=== PATIENT | female | born 1960 | race Caucasian/White ===

== ENCOUNTER → 2016-08-06 | Outpatient (CLI) | payer OTHER ==
[2016-08-06 10:25] LABS: ALT 37 U/L (9-52); AST 26 U/L (14-36); Cholesterol 177 mg/dL (<200); Creatine Kinase 67 U/L (30-135); HDL Cholesterol 70 mg/dL (40-60); Triglycerides 101 mg/dL (<150)
== END | disposition home or self-care (01) ==
LOC: LABWHC1 09:43
PROVIDERS: ATTEND Internal Medicine Interventional Cardiology
DX: E78.2 Mixed hyperlipidemia (principal)
CPT/HCPCS: 36415; 80061; 82550; 84450; 84460

== ENCOUNTER → 2016-11-11 | Outpatient (CLI) | payer OTHER ==
--- NOTE | 2016-11-14 09:52 | MM ---
Reason for exam: screening (asymptomatic). Last mammogram was performed 1 year and 1 month ago. Physical Findings: A clinical breast exam by your physician is recommended on an annual basis and results should be correlated with mammographic findings. MG Screening Mammo w CAD Bilateral CC and MLO view(s) were taken. Prior study comparison: October 12, 2015, bilateral MG screening mammo w CAD. September 22, 2014, bilateral MG screening mammo w CAD. There are scattered fibroglandular densities. There is no discrete abnormality. No significant changes when compared with prior studies. ASSESSMENT: Negative, BI-RAD 1 RECOMMENDATION: Routine screening mammogram of both breasts in 1 year.
== END | disposition home or self-care (01) ==
LOC: RADMAMWWP 07:59
PROVIDERS: ATTEND Obstetrics & Gynecology
DX: Z12.31 Encounter for screening mammogram for malignant neoplasm of breast (principal)

== ENCOUNTER → 2017-03-25 | Outpatient (CLI) | payer OTHER ==
[2017-03-25 11:57] LABS: ALT 34 U/L (9-52); AST 28 U/L (14-36); Cholesterol 172 mg/dL (<200); Creatine Kinase 79 U/L (30-135); HDL Cholesterol 65 mg/dL (40-60)
== END | disposition home or self-care (01) ==
LOC: LABWHC1 10:47
PROVIDERS: ATTEND Internal Medicine Interventional Cardiology
DX: E78.5 Hyperlipidemia, unspecified (principal)
CPT/HCPCS: 36415; 80061; 82550; 84450; 84460

== ENCOUNTER → 2017-05-23 | Outpatient (CLI) | payer OTHER ==
--- NOTE | 2017-05-23 13:11 | US ---
EXAMINATION TYPE: US carotid duplex BILAT DATE OF EXAM: 05/23/2017 COMPARISON: NONE CLINICAL HISTORY: Syncope and collaspe R55. Patient states passing out in March, no HTN EXAM MEASUREMENTS: RIGHT: Peak Systolic Velocity (PSV) cm/sec ----- Right CCA: 68.6 ----- Right ICA: 103.0 ----- Right ECA: 157.6 ICA/CCA ratio: 1.5 RIGHT: End Diastole cm/sec ----- Right CCA: 23.2 ----- Right ICA: 34.4 ----- Right ECA: 18.7 LEFT: Peak Systolic Velocity (PSV) cm/sec ----- Left CCA: 79.8 ----- Left ICA: 104.3 ----- Left ECA: 104.3 ICA/CCA ratio: 1.3 LEFT: End Diastole cm/sec ----- Left CCA: 25.9 ----- Left ICA: 34.4 ----- Left ECA: 15.0 VERTEBRALS (direction of flow): Right Vertebral: Antegrade Left Vertebral: Antegrade Rhythm: Normal IMPRESSION: 1. No significant hemodynamic stenosis identified. Criteria for Assigning % of Stenosis / Diameter reduction (Estimation based on the indirect measurements of the internal carotid artery velocities (ICA PSV). 1. Normal (no stenosis)=ICA PSV < 125 cm/s: ratio < 2.0: ICA EDV<40 cm/s. 2. Less than 50% stenosis=ICA PSV < 125 cm/s: ratio < 2.0: ICA EDV<40 cm/s. 3. 50 to 69% stenosis=ICA PSV of 125 to 230 cm/s: ration 2.0 ? 4.0: ICA EDV 40-100 cm/s. 4. Greater than 70% stenosis to near occlusion= ICA PSV > 230 cm/s: ratio > 4.0: ICA EDV > 100 cm/s. 5. Near occlusion= ICA PSV velocities may be low or undetectable: variable ratio and ICA EDV. 6. Total occlusion=unable to detect flow.
--- NOTE | 2017-05-23 19:10 | EEG ---
ELECTROENCEPHALOGRAM REPORT DATE OF SERVICE: 05/23/2017. REASON FOR TESTING: Syncope. DESCRIPTION OF THE PROCEDURE: This EEG was performed using a 21 channel digital electroencephalograph, following international 10-20 system. DESCRIPTION OF THE RECORDING: From the beginning of the tracing, and with patient's eyes closed, the background rhythm was mostly consisting of 9-10 hertz alpha frequency in the posterior occipital leads. No obvious asymmetry is seen. Hyperventilation was performed with a mild buildup of amplitude seen. No pathological waves were elicited. Photic stimulation was performed with a good driving response seen. Again, no pathological waves were elicited. Rare movement artifacts are seen. The patient remains awake throughout the tracing. No epileptiform discharges were seen. Her EKG lead showed a regular rate and rhythm. INTERPRETATION: This awake EEG can be considered within normal limits. There was no asymmetry seen. No epileptiform discharges were noticed. The absence of epileptiform discharges does not rule out the diagnosis of epilepsy, therefore clinical correlation is recommended. DINESH / ANANT: [id number] /
== END | disposition home or self-care (01) ==
LOC: RADUSMAIN 12:17
PROVIDERS: ATTEND Family Medicine
DX: R55 Syncope and collapse (principal)
CPT/HCPCS: 93880; 95819

== ENCOUNTER → 2017-09-05 | Outpatient (CLI) | payer OTHER ==
[2017-09-05 10:02] LABS: Albumin 4.2 g/dL (3.5-5.0); Calcium 9.4 mg/dL (8.4-10.2); Potassium 4.4 mmol/L (3.5-5.1); Total Bilirubin 0.4 mg/dL (0.2-1.3); Total Protein 6.8 g/dL (6.3-8.2)
[2017-09-05 10:14] LABS: Basophils % (A) 1 %; Eosinophils # (A) 0.1 k/uL (0-0.7); Eosinophils % (A) 3 %; HCT 35.6 % (34.0-46.0); HGB 12.2 gm/dL (11.4-16.0); Lymphocytes # (A) 1.6 k/uL (1.0-4.8); Lymphocytes % (A) 40 %; MCH 30.5 pg (25.0-35.0); MCHC 34.3 g/dL (31.0-37.0); MCV 88.8 fL (80.0-100.0); Mean Platelet Volume 7.4; Monocytes # (A) 0.2 k/uL (0-1.0); Monocytes % (A) 4 %; Neutrophils % (A) 50 %; Platelet Count 273 k/uL (150-450); RBC 4.01 m/uL (3.80-5.40); RDW 12.7 % (11.5-15.5); WBC 4.1 k/uL (3.8-10.6)
[2017-09-05 10:16] LABS: T4, Free (Free Thyroxine) 0.87 ng/dL (0.78-2.19)
[2017-09-05 16:39] LABS: Vitamin D 25 Hydroxy 26.4 ng/mL (30.0-100.0)
[2017-09-05 16:53] LABS: Immunoglobulin E 16.3 IU/mL (0.00-114.00)
[2017-09-05 19:44] LABS: Hemoglobin A1C 5.2 % (4.0-6.0)
[2017-09-07 12:24] LABS: Alpha 1 Anti-Trypsin 100 mg/dL (90 - 200)
== END | disposition home or self-care (01) ==
LOC: LABWHC1 09:03
PROVIDERS: ATTEND Family Medicine
DX: R55 Syncope and collapse (principal); R06.02 Shortness of breath
CPT/HCPCS: 36415; 80053; 80061; 82103; 82104; 82306; 82607; 82785; 83036; 84439; 84443; 85025; 86001; 86606; 86609

== ENCOUNTER → 2017-12-19 | Outpatient (CLI) | payer OTHER ==
--- NOTE | 2017-12-20 10:33 | MM ---
Reason for exam: screening (asymptomatic). Last mammogram was performed 1 year and 1 month ago. Physical Findings: A clinical breast exam by your physician is recommended on an annual basis and results should be correlated with mammographic findings. MG Screening Mammo w CAD Bilateral CC and MLO view(s) were taken. Prior study comparison: November 11, 2016, bilateral MG screening mammo w CAD. October 12, 2015, bilateral MG screening mammo w CAD. The breast tissue is heterogeneously dense. This may lower the sensitivity of mammography. There is no discrete abnormality. No significant changes when compared with prior studies. ASSESSMENT: Negative, BI-RAD 1 RECOMMENDATION: Routine screening mammogram of both breasts in 1 year.
== END | disposition home or self-care (01) ==
LOC: RADMAMWWP 08:23
PROVIDERS: ATTEND Obstetrics & Gynecology
DX: Z12.31 Encounter for screening mammogram for malignant neoplasm of breast (principal)
CPT/HCPCS: 77067

== ENCOUNTER → 2018-06-04 | Outpatient (CLI) | payer OTHER ==
[2018-06-04 07:51] LABS: Basophils % (A) 1 %; Eosinophils # (A) 0.2 k/uL (0-0.7); Eosinophils % (A) 4 %; HCT 39.3 % (34.0-46.0); HGB 12.8 gm/dL (11.4-16.0); Lymphocytes # (A) 2.1 k/uL (1.0-4.8); Lymphocytes % (A) 47 %; MCH 29.3 pg (25.0-35.0); MCHC 32.6 g/dL (31.0-37.0); MCV 89.7 fL (80.0-100.0); Mean Platelet Volume 7.4; Monocytes # (A) 0.2 k/uL (0-1.0); Monocytes % (A) 5 %; Neutrophils # (A) 1.8 k/uL (1.3-7.7); Neutrophils % (A) 41 %; Platelet Count 233 k/uL (150-450); RBC 4.38 m/uL (3.80-5.40); RDW 12.9 % (11.5-15.5); WBC 4.5 k/uL (3.8-10.6)
[2018-06-04 17:10] LABS: Albumin 4.3 g/dL (3.80-4.90); Albumin/Globulin Ratio 2.26 (1.20-2.10); Anion Gap 7.4 mmol/L (4.00-12.00); Calcium 9.4 mg/dL (8.7-10.3); Carbon Dioxide 28.6 mmol/L (21.6-31.8); Globulin 1.9 g/dL (2.1-3.7); LDL Cholesterol,Calculated 88.8 mg/dL (0.0-131.0); Potassium 4.1 mmol/L (3.5-5.5); Total Bilirubin 0.4 mg/dL (0.3-1.2); Total Protein 6.2 g/dL (6.2-8.2); VLDL Calculation 26.2 mg/dL (5.00-40.00)
[2018-06-04 19:44] LABS: Hemoglobin A1C 5.8 % (4.0-6.0)
== END | disposition home or self-care (01) ==
LOC: LABWHC1 07:19
PROVIDERS: ATTEND Family Medicine
DX: E78.5 Hyperlipidemia, unspecified (principal); R55 Syncope and collapse; K21.9 Gastro-esophageal reflux disease without esophagitis
CPT/HCPCS: 36415; 80053; 80061; 82607; 83036; 84443; 85025

== ENCOUNTER → 2018-06-28 | Outpatient (CLI) | payer OTHER ==
--- NOTE | 2018-07-02 07:52 | BD ---
EXAMINATION TYPE: Axial Bone Density DATE OF EXAM: 06/28/2018 COMPARISON: DEXA bone scan September 25, 2013. CLINICAL HISTORY: Postmenopausal female Height: 5 FT 5 1/4 IN Weight: 194 FRAX RISK QUESTIONS: History of Fracture in Adulthood: YES RISK FACTORS HISTORY OF: Postmenopausal woman: PART KWASIST AGE 38 MEDICATIONS: Additional Medications: ATORVASTATIN, Additional History: EXAM MEASUREMENTS: Bone mineral densitometry was performed using the Sticky System. Bone mineral density as measured about the Lumbar spine is: ----- L1-L4(G/cm2): 1.225 T Score Values are as follows: ----- L2: 0.2 ----- L3: 0.7 ----- L4: -0.1 ----- L1-L4: 0.4 Bone mineral density has: DECREASED -3.8 % since study of: 2013 Bone mineral density about the R hip (g/cm2): 1.017 Bone mineral density about the L hip (g/cm2): 1.014 T Score values are as follows: -----R Neck: -0.1 -----L Neck: -0.2 -----R Total: 0.0 -----L Total: 0.2 Bone mineral density has: DECREASED -1.9 % since study of: 2013 IMPRESSION: Normal (Values between +1 and -1 indicate normal bone mass). Consider repeating this study in 5 year s or sooner if there is some new clinical indication. NOTE: T-SCORE=SD OF THE YOUNG ADULT MEAN.
== END | disposition home or self-care (01) ==
LOC: RADBDWWP 16:12
PROVIDERS: ATTEND Obstetrics & Gynecology
DX: Z13.820 Encounter for screening for osteoporosis (principal)
CPT/HCPCS: 77080

== ENCOUNTER → 2019-01-29 | Outpatient (CLI) | payer OTHER ==
--- NOTE | 2019-01-30 09:23 | MM ---
Reason for exam: screening (asymptomatic). Last mammogram was performed 1 year and 1 month ago. Physical Findings: A clinical breast exam by your physician is recommended on an annual basis and results should be correlated with mammographic findings. MG 3D Screening Mammo W/Cad Bilateral CC and MLO view(s) were taken. Prior study comparison: December 19, 2017, bilateral MG screening mammo w CAD. November 11, 2016, bilateral MG screening mammo w CAD. The breast tissue is heterogeneously dense. This may lower the sensitivity of mammography. No suspicious abnormality. Chronic right nipple inversion. No significant changes when compared with prior studies. ASSESSMENT: Benign, BI-RAD 2 RECOMMENDATION: Routine screening mammogram of both breasts in 1 year.
== END | disposition home or self-care (01) ==
LOC: RADMAMWWP 08:20
PROVIDERS: ATTEND Obstetrics & Gynecology
DX: Z12.31 Encounter for screening mammogram for malignant neoplasm of breast (principal)
CPT/HCPCS: 77063; 77067

== ENCOUNTER → 2019-07-12 | Outpatient (CLI) | payer BC ==
[2019-07-12 08:39] LABS: Basophils # (A) 0.1 k/uL (0-0.2); Basophils % (A) 2 %; Eosinophils # (A) 0.1 k/uL (0-0.7); Eosinophils % (A) 3 %; HCT 39.3 % (34.0-46.0); HGB 12.5 gm/dL (11.4-16.0); Lymphocytes # (A) 1.4 k/uL (1.0-4.8); Lymphocytes % (A) 39 %; MCH 29.6 pg (25.0-35.0); MCHC 31.9 g/dL (31.0-37.0); MCV 92.7 fL (80.0-100.0); Mean Platelet Volume 8.4; Monocytes # (A) 0.2 k/uL (0-1.0); Monocytes % (A) 5 %; Neutrophils # (A) 1.9 k/uL (1.3-7.7); Neutrophils % (A) 50 %; Platelet Count 227 k/uL (150-450); RBC 4.24 m/uL (3.80-5.40); RDW 12.6 % (11.5-15.5); WBC 3.7 k/uL (3.8-10.6)
[2019-07-12 17:52] LABS: African American GFR (CKD) 72.4 (60.0-200.0); Albumin 4.5 g/dL (3.80-4.90); Albumin/Globulin Ratio 2.5 (1.60-3.17); Anion Gap 9.9 mmol/L (4.00-12.00); Calcium 9.2 mg/dL (8.7-10.3); Carbon Dioxide 26.1 mmol/L (21.6-31.8); Chol/HDL Ratio 2.88; Globulin 1.8 g/dL (1.6-3.3); LDL Cholesterol,Calculated 85.2 mg/dL (0.0-131.0); Non-African American GFR(CKD) 62.5 (60.0-200.0); Potassium 4.3 mmol/L (3.5-5.5); Total Bilirubin 0.6 mg/dL (0.3-1.2); Total Protein 6.3 g/dL (6.2-8.2); VLDL Calculation 23.8 mg/dL (5.00-40.00)
[2019-07-12 18:01] LABS: T4, Free (Free Thyroxine) 1.1 ng/dL (0.80-1.80)
[2019-07-12 19:34] LABS: Hemoglobin A1C 5.2 % (4.0-6.0)
== END | disposition home or self-care (01) ==
LOC: LABWHC1 08:14
PROVIDERS: ATTEND Family Medicine
DX: E78.5 Hyperlipidemia, unspecified (principal); R73.03 Prediabetes; E55.9 Vitamin D deficiency, unspecified; E53.8 Deficiency of other specified B group vitamins; E06.9 Thyroiditis, unspecified
CPT/HCPCS: 36415; 80053; 80061; 82306; 82607; 83036; 84436; 84439; 84443; 84480; 85025

== ENCOUNTER → 2019-11-20 | Outpatient (CLI) | payer BC ==
--- NOTE | 2019-11-20 09:22 | NM ---
Nuclear medicine hepatobiliary scan. HISTORY: Pain. DOSAGE: The patient received 8 ounces of ensure plus and 4.1 mCi of Technetium 99m Choletec. FINDINGS: There is normal hepatic extraction. The gallbladder is seen by 20 minutes. There is bilia ry to bowel clearance by 20 minutes. Ejection fraction is 94%. IMPRESSION: 1. No evidence of cholecystitis. 2. Ejection fraction of 94% can be associated with hyperdynamic gallbladder correlate clinically.
== END | disposition home or self-care (01) ==
LOC: RADNMMAIN 06:58
PROVIDERS: ATTEND Family Medicine
DX: K80.18 Calculus of gallbladder with other cholecystitis without obstruction (principal)
CPT/HCPCS: 78226; A9537

== ENCOUNTER → 2020-01-09 | Outpatient (CLI) | payer BC ==
[2020-01-09 09:07] LABS: Basophils % (A) 1 %; Eosinophils # (A) 0.3 k/uL (0-0.7); Eosinophils % (A) 5 %; HCT 38.4 % (34.0-46.0); Lymphocytes # (A) 2.1 k/uL (1.0-4.8); Lymphocytes % (A) 44 %; MCH 30.7 pg (25.0-35.0); MCHC 33.7 g/dL (31.0-37.0); MCV 90.9 fL (80.0-100.0); Mean Platelet Volume 8.1; Monocytes # (A) 0.2 k/uL (0-1.0); Monocytes % (A) 5 %; Neutrophils # (A) 2.2 k/uL (1.3-7.7); Neutrophils % (A) 45 %; Platelet Count 203 k/uL (150-450); RBC 4.23 m/uL (3.80-5.40); RDW 13.1 % (11.5-15.5); WBC 4.9 k/uL (3.8-10.6)
[2020-01-09 16:49] LABS: African American GFR (CKD) 72.4 (60.0-200.0); Albumin 4.4 g/dL (3.80-4.90); Anion Gap 5.9 mmol/L (4.00-12.00); Calcium 9.6 mg/dL (8.7-10.3); Carbon Dioxide 28.1 mmol/L (21.6-31.8); Chol/HDL Ratio 2.49; Globulin 2.2 g/dL (1.6-3.3); LDL Cholesterol,Calculated 55.2 mg/dL (0.0-131.0); Non-African American GFR(CKD) 62.5 (60.0-200.0); Potassium 4.2 mmol/L (3.5-5.5); Total Bilirubin 0.6 mg/dL (0.2-1.2); Total Protein 6.6 g/dL (6.2-8.2); VLDL Calculation 23.8 mg/dL (5.00-40.00)
[2020-01-09 17:35] LABS: Hemoglobin A1C 5.7 % (4.0-6.0)
== END | disposition home or self-care (01) ==
LOC: LABWHC1 07:25
PROVIDERS: ATTEND Family Medicine
DX: E78.5 Hyperlipidemia, unspecified (principal); R73.03 Prediabetes
CPT/HCPCS: 36415; 80053; 80061; 83036; 84443; 85025

== ENCOUNTER 2020-02-03 09:10 | Day surgery (SDC) | payer BC ==
[2020-01-30 15:55] VITALS: BMI 30.2
[~2020-02-03 09:10] MED LIST: LACTATED RINGERS 1,000 ML IV SCH; LIDOCAINE 1% (10MG/ML) FOR IV START INTRADERMA PRN
[2020-02-03 09:44] VITALS: TEMP 97.7
[2020-02-03] MEDS ORDERED: MIDAZOLAM 2 MG/2 ML VIAL ONE (10:00)
[2020-02-03] MEDS ORDERED: fentaNYL (PF) 50 MCG/ML 2 ML AMP ONE (10:00)
[2020-02-03] MEDS ORDERED: PROPOFOL 10 MG/ML 20 ML VIAL IV ONE (10:00)
--- NOTE | 2020-02-03 10:26 | P.PCN ---
Date of Procedure: 02/03/20 Description of Procedure: BRIEF HISTORY: Patient is a 59-year-old female presenting for outpatient colonoscopy for altered bowel function. Patient had symptoms of loose stool, discolored stool with associated abdominal pain. She felt symptoms were worse after cholecystectomy. Started on treatment with cholestyramine with some improvement in her symptoms. PROCEDURE PERFORMED: Colonoscopy with biopsy. PREOPERATIVE DIAGNOSIS: Altered bowel function/change in bowel habits. ESTIMATED BLOOD LOSS: Minimal. IV sedation per Anesthesia. PROCEDURE: After informed consent was obtained, the patient, was brought into the endoscopy unit. IV sedation was administered by Anesthesia under continuous monitoring. Digital rectal examination was normal. Initially the Olympus CF-190 flexible video colonoscope was then inserted in the rectum, gradually advanced into the cecum without any difficulty. Careful examination was performed as the scope was gradually being withdrawn. Ileocecal valve and the appendiceal orifice were visualized and appeared normal. Prep was excellent. Mucosa of the cecum, ascending colon, transverse colon, descending colon, sigmoid colon, and rectum appeared normal, with random biopsies of right and left colon. BOWEL function. Terminal ileum was intubated and appeared normal with biopsies taken. Retroflexion was performed in the rectum and no lesions were seen, with low- grade hemorrhoids seen. The patient tolerated the procedure well. IMPRESSION: Normal-appearing colon from rectum to cecum and normal-appearing terminal ileum with random biopsies taken of the right colon, left colon and terminal ileum. RECOMMENDATIONS: Findings of this examination were discussed with the patient and her . Okay to resume diet. Okay to resume medications. Continue cholestyramine with patient instructed to titrate the medicine into normal formed bowel movements. Follow-up in GI clinic as previously scheduled.
[2020-02-03 10:31] VITALS: RESP 16
[2020-02-03 10:53] VITALS: BP 130/82; PULSE 59
== END 2020-02-03 11:22 | disposition home or self-care (01) ==
LOC: ORWHC2ENDO 09:10
PROVIDERS: ATTEND Internal Medicine
DX: R19.4 Change in bowel habit (principal); R19.7 Diarrhea, unspecified; R10.9 Unspecified abdominal pain; K64.9 Unspecified hemorrhoids; K08.89 Other specified disorders of teeth and supporting structures; I25.10 Atherosclerotic heart disease of native coronary artery without angina pectoris; E78.5 Hyperlipidemia, unspecified; R56.00 Simple febrile convulsions; K21.9 Gastro-esophageal reflux disease without esophagitis; Z79.899 Other long term (current) drug therapy; Z98.890 Other specified postprocedural states; Z90.49 Acquired absence of other specified parts of digestive tract; Z90.710 Acquired absence of both cervix and uterus; Z98.51 Tubal ligation status; Z87.19 Personal history of other diseases of the digestive system; Z87.42 Personal history of other diseases of the female genital tract
CPT/HCPCS: 88305; 45380; J2250; J3010; J2704

== ENCOUNTER → 2020-03-04 | Outpatient (CLI) | payer BC ==
--- NOTE | 2020-03-05 10:32 | MM ---
Reason for exam: screening (asymptomatic). Last mammogram was performed 1 year and 1 month ago. Physical Findings: A clinical breast exam by your physician is recommended on an annual basis and results should be correlated with mammographic findings. MG 3D Screening Mammo W/Cad Bilateral CC and MLO view(s) were taken. Prior study comparison: January 29, 2019, bilateral MG 3d screening mammo w/cad. December 19, 2017, bilateral MG screening mammo w CAD. The breast tissue is heterogeneously dense. This may lower the sensitivity of mammography. There is no discrete abnormality. No significant changes when compared with prior studies. ASSESSMENT: Negative, BI-RAD 1 RECOMMENDATION: Routine screening mammogram of both breasts in 1 year.
== END | disposition home or self-care (01) ==
LOC: RADMAMWWP 09:52
PROVIDERS: ATTEND Obstetrics & Gynecology
DX: Z12.31 Encounter for screening mammogram for malignant neoplasm of breast (principal)
CPT/HCPCS: 77063; 77067

== ENCOUNTER → 2020-04-22 | Outpatient (CLI) | payer BC ==
[2020-04-23 01:35] LABS: T4, Free (Free Thyroxine) 1.2 ng/dL (0.80-1.80)
== END | disposition home or self-care (01) ==
LOC: LABWHC1 13:46
PROVIDERS: ATTEND Family Medicine
DX: E07.9 Disorder of thyroid, unspecified (principal)
CPT/HCPCS: 36415; 84439; 84443; 84480; 86376

== ENCOUNTER → 2020-05-22 | Outpatient (CLI) | payer BC ==
[2020-05-22 15:33] LABS: Chol/HDL Ratio 3.02; LDL Cholesterol,Calculated 83.2 mg/dL (0.0-131.0); VLDL Calculation 29.8 mg/dL (5.00-40.00)
== END | disposition home or self-care (01) ==
LOC: LABWHC1 07:45
PROVIDERS: ATTEND Internal Medicine Interventional Cardiology
DX: E78.5 Hyperlipidemia, unspecified (principal)
CPT/HCPCS: 36415; 80061; 82550; 84450; 84460

== ENCOUNTER → 2021-03-10 | Outpatient (CLI) | payer BC ==
--- NOTE | 2021-03-10 14:24 | MM ---
Reason for exam: screening (asymptomatic). Last mammogram was performed 1 year ago. Physical Findings: A clinical breast exam by your physician is recommended on an annual basis and results should be correlated with mammographic findings. MG 3D Screening Mammo W/Cad Bilateral CC and MLO view(s) were taken. Prior study comparison: March 04, 2020, bilateral MG 3d screening mammo w/cad. January 29, 2019, bilateral MG 3d screening mammo w/cad. December 19, 2017, bilateral MG screening mammo w CAD. The breast tissue is heterogeneously dense. This may lower the sensitivity of mammography. There are benign appearing round calcifications in the right breast. There is no discrete abnormality. ASSESSMENT: Benign, BI-RAD 2 RECOMMENDATION: Routine screening mammogram of both breasts in 1 year.
== END | disposition home or self-care (01) ==
LOC: RADMAMWWP 08:15
PROVIDERS: ATTEND Obstetrics & Gynecology
DX: Z12.31 Encounter for screening mammogram for malignant neoplasm of breast (principal)
CPT/HCPCS: 77063; 77067

== ENCOUNTER → 2021-07-07 | Outpatient (CLI) | payer BC ==
[2021-07-07 10:42] LABS: Basophils # (A) 0.03 X 10*3/uL (0.00-0.10); Basophils % (A) 0.6 %; Eosinophils # (A) 0.11 X 10*3/uL (0.04-0.35); Eosinophils % (A) 2.4 %; HCT 39.2 % (37.2-46.3); HGB 12.3 g/dL (12.0-15.0); Lymphocytes # (A) 2.19 X 10*3/uL (0.90-5.00); MCH 29.3 pg (27.0-32.0); MCHC 31.4 g/dL (32.0-37.0); MCV 93.3 fL (80.0-97.0); Mean Platelet Volume 10.8 fL (9.5-12.2); Monocytes # (A) 0.36 X 10*3/uL (0.20-1.00); Monocytes % (A) 7.7 %; Neutrophils # (A) 1.96 X 10*3/uL (1.80-7.70); Neutrophils % (A) 42.1 %; Platelet Count 262 X 10*3/uL (140-440); RDW 12.4 % (11.5-14.5); WBC 4.66 X 10*3/uL (4.50-10.00)
[2021-07-07 11:04] LABS: ALT 21 U/L (8-44); AST 18 U/L (13-35); African American GFR (CKD) 84.5 (60.0-200.0); Albumin 4.3 g/dL (3.8-4.9); Albumin/Globulin Ratio 2.13 (1.60-3.17); Alkaline Phosphatase 108 U/L (41-126); BUN/Creat Ratio 15.86 Ratio (12.00-20.00); Blood Urea Nitrogen 13.8 mg/dL (9.0-27.0); Calcium 9.2 mg/dL (8.7-10.3); Chloride 104 mmol/L (96-109); Chol/HDL Ratio 2.96 Ratio; Creatine Kinase 66 U/L (26-186); Glucose 97 mg/dL (70-110); LDL Cholesterol,Calculated 80.8 mg/dL (0.0-131.0); Non-African American GFR(CKD) 72.9 (60.0-200.0); Potassium 4.3 mmol/L (3.5-5.5); Sodium 140 mmol/L (135-145); Total Protein 6.4 g/dL (6.2-8.2)
[2021-07-07 11:29] LABS: Protein, Total 6.5 g/dL (6.2-8.2)
== END | disposition home or self-care (01) ==
LOC: LABWHC1 07:21
PROVIDERS: ATTEND Family Medicine
DX: N17.9 Acute kidney failure, unspecified (principal); D72.819 Decreased white blood cell count, unspecified; R73.03 Prediabetes; E78.5 Hyperlipidemia, unspecified; R82.90 Unspecified abnormal findings in urine; R00.1 Bradycardia, unspecified
CPT/HCPCS: 36415; 80053; 80061; 82306; 82550; 82607; 83036; 84165; 84443; 85025; 86038; 86334

== ENCOUNTER → 2022-03-17 | Outpatient (CLI) | payer BC ==
--- NOTE | 2022-03-18 07:44 | MM ---
Reason for Exam: Screening (asymptomatic). Last screening mammogram was performed 12 month(s) ago. Patient History: Menarche at age 14. First Full-Term at age 26. Hysterectomy at age 40. Postmenopausal. Risk Values: Luann 5 year model risk: 1.3%. NCI Lifetime model risk: 6.6%. Prior Study Comparison: 01/29/2019 Bilateral Screening Mammogram, [facility]. 03/04/2020 Bilateral Screening Mammogram, [facility]. 03/10/2021 Bilateral Screening Mammogram, [facility]. Tissue Density: The breast tissue is heterogeneously dense. This may lower the sensitivity of mammography. Findings: Analyzed By CAD. There is no suspicious group of microcalcifications or new suspicious mass in either breast. Benign appearing round calcifications in the right breast. No significant change from prior exams. Overall Assessment: Benign, BI-RAD 2 Management: Screening Mammogram of both breasts in 1 year. A clinical breast exam by your physician is recommended on an annual basis and results should be correlated with mammographic findings. Electronically signed and approved by: Alex Brar D.O.
== END | disposition home or self-care (01) ==
LOC: RADMAMWWP 08:45
PROVIDERS: ATTEND Obstetrics & Gynecology
DX: Z12.31 Encounter for screening mammogram for malignant neoplasm of breast (principal)
CPT/HCPCS: 77063; 77067

== ENCOUNTER → 2022-06-16 | Outpatient (CLI) | payer BC ==
[2022-06-16 22:33] LABS: HCT 34.7 % (37.2-46.3); HGB 11.2 g/dL (12.0-15.0); MCH 30.3 pg (27.0-32.0); MCHC 32.3 g/dL (32.0-37.0); MCV 93.8 fL (80.0-97.0); Mean Platelet Volume 11.8 fL (9.5-12.2); NRBC Per 100 WBC 0 /100 WBCS (0.0-0.0); Platelet Count 291 X 10*3/uL (140-440); RDW 12.9 % (11.5-14.5); WBC 6.06 X 10*3/uL (4.50-10.00)
[2022-06-16 22:52] LABS: African American GFR (CKD) 92.9 (60.0-200.0); Anion Gap 8.3 mmol/L (10.00-18.00); Blood Urea Nitrogen 17.6 mg/dL (9.0-27.0); Carbon Dioxide 27.7 mmol/L (20.0-27.5); Non-African American GFR(CKD) 80.1 (60.0-200.0); Potassium 4.3 mmol/L (3.5-5.5)
== END | disposition home or self-care (01) ==
LOC: LABPAT 16:03
PROVIDERS: ATTEND Internal Medicine Interventional Cardiology
DX: Z01.812 Encounter for preprocedural laboratory examination (principal); R07.89 Other chest pain; R55 Syncope and collapse
CPT/HCPCS: 36415; 80051; 82565; 84520; 85027

== ENCOUNTER → 2022-07-16 | Outpatient (CLI) | payer BC ==
[2022-07-16 16:11] LABS: Basophils # (A) 0.04 X 10*3/uL (0.00-0.10); Basophils % (A) 0.9 %; Eosinophils # (A) 0.08 X 10*3/uL (0.04-0.35); Eosinophils % (A) 1.8 %; HCT 37.5 % (37.2-46.3); HGB 11.9 g/dL (12.0-15.0); Immature Grans, Automated 0.2 %; Lymphocytes # (A) 1.73 X 10*3/uL (0.90-5.00); Lymphocytes % (A) 39.6 %; MCH 29.5 pg (27.0-32.0); MCHC 31.7 g/dL (32.0-37.0); MCV 92.8 fL (80.0-97.0); Mean Platelet Volume 11.4 fL (9.5-12.2); Monocytes # (A) 0.35 X 10*3/uL (0.20-1.00); NRBC Per 100 WBC 0 /100 WBCS (0.0-0.0); Neutrophils # (A) 2.16 X 10*3/uL (1.80-7.70); Neutrophils % (A) 49.5 %; Platelet Count 229 X 10*3/uL (140-440); RBC 4.04 X 10*6/uL (4.10-5.20); RDW 12.1 % (11.5-14.5); WBC 4.37 X 10*3/uL (4.50-10.00)
[2022-07-16 16:45] LABS: ALT 21 U/L (8-44); AST 21 U/L (13-35); African American GFR (CKD) 80.5 (60.0-200.0); Albumin 4.6 g/dL (3.8-4.9); Albumin/Globulin Ratio 2.09 (1.60-3.17); Alkaline Phosphatase 110 U/L (41-126); BUN/Creat Ratio 22.33 Ratio (12.00-20.00); Blood Urea Nitrogen 20.1 mg/dL (9.0-27.0); Calcium 9.5 mg/dL (8.7-10.3); Chloride 106 mmol/L (96-109); Chol/HDL Ratio 2.58 Ratio; Globulin 2.2 g/dL (1.6-3.3); Glucose 86 mg/dL (70-110); LDL Cholesterol,Calculated 86.8 mg/dL (0.0-131.0); Non-African American GFR(CKD) 69.5 (60.0-200.0); Potassium 4.4 mmol/L (3.5-5.5); Sodium 143 mmol/L (135-145); Total Protein 6.8 g/dL (6.2-8.2)
== END | disposition home or self-care (01) ==
LOC: LABWHC1 10:20
PROVIDERS: ATTEND Family Medicine
DX: Z00.00 Encounter for general adult medical examination without abnormal findings (principal); E78.5 Hyperlipidemia, unspecified; E53.8 Deficiency of other specified B group vitamins; E55.9 Vitamin D deficiency, unspecified; R73.9 Hyperglycemia, unspecified
CPT/HCPCS: 36415; 80053; 80061; 82306; 82607; 83036; 84443; 85025

== ENCOUNTER → 2022-09-19 | Day surgery (SDC) | payer BC ==
[~2022-09-19] MED LIST changes: -LACTATED RINGERS 1,000 ML IV SCH; -LIDOCAINE 1% (10MG/ML) FOR IV START INTRADERMA PRN; +SODIUM CHLORIDE 0.9% 1,000 ML IV SCH
[2022-09-19 12:16] VITALS: BP 163/73; PULSE 67; RESP 18; TEMP 99.2
--- NOTE | 2022-09-19 20:20 | P.EPPROC ---
- EP Procedure Note Electrophysiology Procedure Note: Diagnosis Recurrent syncope Twelve-lead EKG shows sinus mechanism normal CO narrow QRS normal ST segments normal QT interval no delta waves no epsilon waves Tilt table test per protocol Baseline heart rate 60 beats a minute, Baseline blood pressure 140/61 mmHg Patient was tilted upright at an angle of 70 per protocol heart rates remained in the 70s There was a slow but gradual decline in her blood pressure over the next 30 minutes Lowest blood pressure was 109/63 mmHg Unclear site noninvasive blood pressure monitoring there was a similar gradual decline in her blood pressure No syncope noted Patient complaint a mild headache Impression Mild dysautonomia Normal twelve-lead EKG
== END ==
LOC: CATHEP 11:53
PROVIDERS: ATTEND Internal Medicine Clinical Cardiac Electrophysiology
DX: R55 Syncope and collapse (principal)
CPT/HCPCS: 93660

== ENCOUNTER → 2022-10-08 | Outpatient (CLI) | payer BC ==
[2022-10-08 23:55] LABS: Basophils # (A) 0.04 X 10*3/uL (0.00-0.10); Basophils % (A) 0.7 %; Eosinophils % (A) 1.9 %; HCT 40.8 % (37.2-46.3); HGB 12.9 g/dL (12.0-15.0); Immature Grans, Automated 0.2 %; Lymphocytes # (A) 1.33 X 10*3/uL (0.90-5.00); Lymphocytes % (A) 24.9 %; MCH 29.5 pg (27.0-32.0); MCHC 31.6 g/dL (32.0-37.0); MCV 93.4 fL (80.0-97.0); Mean Platelet Volume 11.3 fL (9.5-12.2); Monocytes # (A) 0.43 X 10*3/uL (0.20-1.00); NRBC Per 100 WBC 0 /100 WBCS (0.0-0.0); Neutrophils # (A) 3.44 X 10*3/uL (1.80-7.70); Neutrophils % (A) 64.3 %; Platelet Count 218 X 10*3/uL (140-440); RBC 4.37 X 10*6/uL (4.10-5.20); RDW 12.5 % (11.5-14.5); WBC 5.35 X 10*3/uL (4.50-10.00)
[2022-10-09 06:49] LABS: African American GFR (CKD) 70.9 (60.0-200.0); Anion Gap 9.2 mmol/L (10.00-18.00); BUN/Creat Ratio 18.9 Ratio (12.00-20.00); Blood Urea Nitrogen 18.9 mg/dL (9.0-27.0); Calcium 9.3 mg/dL (8.7-10.3); Carbon Dioxide 26.8 mmol/L (20.0-27.5); Non-African American GFR(CKD) 61.2 (60.0-200.0); Potassium 4.1 mmol/L (3.5-5.5)
[2022-10-09 08:12] LABS: % Iron Saturation 23.57 (12.00-45.00); T4, Free (Free Thyroxine) 1.18 ng/dL (0.800-1.800)
== END | disposition home or self-care (01) ==
LOC: LABWHC1 09:20
PROVIDERS: ATTEND Family Medicine
DX: D50.9 Iron deficiency anemia, unspecified (principal); E07.9 Disorder of thyroid, unspecified; R55 Syncope and collapse
CPT/HCPCS: 36415; 80048; 83540; 83550; 84439; 84443; 85025

== ENCOUNTER → 2023-03-29 | Outpatient (CLI) | payer BC ==
--- NOTE | 2023-03-29 15:45 | BD ---
EXAMINATION TYPE: Axial Bone Density DATE OF EXAM: 03/29/2023 CLINICAL HISTORY: 63 years old Female. ICD-10 CODE: N95.1 POST MENOPAUSE Height: 65.25 Weight: 160 FRAX RISK QUESTIONS: Family History (Parent hip fracture): no History of Fracture in Adulthood: no Secondary Osteoporosis: yes 3. Menopause before 45: yes RISK FACTORS HISTORY OF: Family History of Osteoporosis: no Active: yes Diet low in dairy products/other sources of calcium: no Postmenopausal woman: yes Lost more than 2 inches in height since high school: no Frequent falls: no Poor Health: no MEDICATIONS: Additional Medications: yes cholesterol, ibs meds, blood pressure, vits EXAM MEASUREMENTS: Bone mineral densitometry was performed using the [employer] System. Bone mineral density as measured about the Lumbar spine is: ----- L1-L4(G/cm2): 1.160 T Score Values are as follows: ----- L1: -0.2 ----- L2: -0.6 ----- L3: 0.1 ----- L4: -0.2 ----- L1-L4: -0.2 Z Score Values are as follows: ----- L1: 0.8 ----- L2: 0.4 ----- L3: 1.1 ----- L4: 0.8 ----- L1-L4: 0.8 Bone mineral density has: Decreased -9.2% since study of: 09/25/2013 Bone mineral density about the R hip (g/cm2): 0.994 Bone mineral density about the L hip (g/cm2): 0.975 T Score values are as follows: -----R Neck: -1.3 -----L Neck: -1.2 -----R Total: -0.1 -----L Total: -0.3 Z Score values are as follows: -----R Neck: -0.2 -----L Neck: -0.1 -----R Total: 0.7 -----L Total: 0.5 Bone mineral density has: Decreased -5.7% since study of: 09/25/2013 FRAX%s: The graph provided illustrates a 7.7% chance for a major osteoporotic fx and a 0.6% chance fo r the hips probability for fx in 10 years time. IMPRESSION: Osteopenia (T Score between -2.5 and -1). There is slightly increased risk of fracture and the patient may be considered for treatment. Re-Screen 2-5 years. NOTE: T-SCORE=SD OF THE YOUNG ADULT MEAN.
--- NOTE | 2023-03-30 20:44 | MM ---
Reason for Exam: Screening (asymptomatic). Last mammogram was performed 1 year(s) and 1 month(s) ago. Patient History: Menarche at age 14. First Full-Term at age 26. Hysterectomy at age 40. Postmenopausal. Patient has history of breast feeding. Risk Values: Luann 5 year model risk: 1.3%. NCI Lifetime model risk: 6.4%. Prior Study Comparison: 03/04/2020 Bilateral Screening Mammogram, [facility]. 03/10/2021 Bilateral Screening Mammogram, [facility]. 03/17/2022 Bilateral MG 3D screening mammo w/cad, [facility]. Tissue Density: The breast tissue is heterogeneously dense. This may lower the sensitivity of mammography. Findings: Analyzed By CAD. Loop recorder device medially at the left breast. There is no suspicious group of microcalcifications or new suspicious mass in either breast. Overall Assessment: Benign, BI-RAD 2 Management: Screening Mammogram of both breasts in 1 year. . Patient should continue monthly self-breast exams. A clinical breast exam by your physician is recommended on an annual basis. This exam should not preclude additional follow-up of suspicious palpable abnormalities. Note on Luann scores and lifetime risk: 1. A Luann score greater than 3% is considered moderate risk. If this is the case, consider specialist referral to assess eligibility for a risk reducing agent. 2. If overall lifetime risk for the development of breast cancer is 20% or higher, the patient may qualify for future screening with alternating mammogram and breast MRI. Electronically signed and approved by: Nina Douglas M.D. Radiologist
== END | disposition home or self-care (01) ==
LOC: RADMAMWWP 14:37
PROVIDERS: ATTEND Obstetrics & Gynecology
DX: Z12.31 Encounter for screening mammogram for malignant neoplasm of breast (principal); N95.1 Menopausal and female climacteric states; M85.89 Other specified disorders of bone density and structure, multiple sites
CPT/HCPCS: 77063; 77067; 77080

== ENCOUNTER → 2023-04-08 | Outpatient (CLI) | payer BC ==
[2023-04-08 13:47] LABS: Basophils # (A) 0.05 X 10*3/uL (0.00-0.10); Eosinophils % (A) 2.1 %; HCT 40.3 % (37.2-46.3); HGB 12.5 d/dL (12.0-15.0); Lymphocytes # (A) 2.03 X 10*3/uL (0.90-5.00); Lymphocytes % (A) 41.9 %; MCH 29.8 pg (27.0-32.0); Mean Platelet Volume 10.7 FL (9.5-12.2); Monocytes # (A) 0.43 X 10*3/uL (0.20-1.00); Monocytes % (A) 8.9 %; NRBC Per 100 WBC 0 X 10*3/uL (0.00-0.01); Neutrophils # (A) 2.23 X 10*3/uL (1.80-7.70); Neutrophils % (A) 45.9 %; Platelet Count 259 X 10*3/uL (140-440); WBC 4.85 X 10*3/uL (4.50-10.00)
[2023-04-08 14:20] LABS: % Iron Saturation 20.42 (12.00-45.00); ALT 14 U/L (8-44); AST 14 U/L (13-35); Albumin 4.4 d/dL (3.8-4.9); Alkaline Phosphatase 94 U/L (41-126); BUN/Creat Ratio 26.11 Ratio (12.00-20.00); Blood Urea Nitrogen 23.5 mg/dL (9.0-27.0); Calcium 9.4 mg/dL (8.7-10.3); Chloride 104 mmol/L (96-109); Chol/HDL Ratio 2.56 Ratio; Globulin 2.2 d/dL (1.6-3.3); Glucose 99 mg/dL (70-110); Iron 77 UG/DL (50-170); Potassium 4.5 mmol/L (3.5-5.5); Sodium 142 mmol/L (135-145); Total Bilirubin 0.3 mg/dL (0.3-1.2); Total Iron Binding Capacity 377 UG/DL (228-460); Total Protein 6.6 d/dL (6.2-8.2); VLDL Calculation 14.62 mg/dL (5.00-40.00)
== END | disposition home or self-care (01) ==
LOC: LABWHC1 08:33
PROVIDERS: ATTEND Family Medicine
DX: Z00.00 Encounter for general adult medical examination without abnormal findings (principal); E78.5 Hyperlipidemia, unspecified; D50.9 Iron deficiency anemia, unspecified; E53.8 Deficiency of other specified B group vitamins; E55.9 Vitamin D deficiency, unspecified; R73.03 Prediabetes
CPT/HCPCS: 36415; 80053; 80061; 82306; 82607; 83036; 83540; 83550; 84443; 85025

== ENCOUNTER → 2023-09-27 | Outpatient (CLI) | payer BC ==
--- NOTE | 2023-09-27 08:41 | CT ---
EXAMINATION TYPE: CT brain wo/w con DATE OF EXAM: 09/27/2023 COMPARISON: none HISTORY: fall CT DLP: 2026mGycm CONTRAST: CT scan of the head is performed with IV Contrast, patient injected with 100 mL of Isovue 300. Unenhanced followed by contrast enhanced CT of the brain is submitted for evaluation. The ventricles are midline. There is no evidence for intracranial hemorrhage or extra-axial collection. No mass e ffects are identified. Visualized bony calvarium is intact. Contrast is administered and there is a n enhancing dural based lesion posterior occipital region measuring 1 cm x 7 mm compatible with a men ingioma. No pathologic enhancement is identified. If symptoms persist consider MRI. IMPRESSION: 1. Meningioma.
--- NOTE | 2023-09-27 08:45 | CT ---
EXAMINATION TYPE: CT facial bones wo con DATE OF EXAM: 09/27/2023 COMPARISON: None HISTORY: fall CT DLP: 544.[address] of the facial bones was performed in the axial and coronal planes. Bone and soft tissu e window settings are submitted. No significant soft tissue swelling is appreciated. I do not see evidence for displaced facial bone fracture or depressed facial bone fracture. The globes are intact. Moderate left maxillary mucous retention cysts noted. The remaining paranasal sinuses are well-aerate d. IMPRESSION: 1. No evidence for depressed or displaced facial bone fracture.
== END | disposition home or self-care (01) ==
LOC: RADCTMAIN 07:50
PROVIDERS: ATTEND Family Medicine
DX: D32.9 Benign neoplasm of meninges, unspecified (principal); G44.311 Acute post-traumatic headache, intractable; S02.2XXA Fracture of nasal bones, initial encounter for closed fracture; X58.XXXA Exposure to other specified factors, initial encounter
CPT/HCPCS: 70486; 70470; Q9967

== ENCOUNTER → 2024-05-21 | Outpatient (CLI) | payer BC ==
--- NOTE | 2024-05-21 11:22 | MM ---
Reason for Exam: Screening (asymptomatic). Last mammogram was performed 1 year(s) and 1 month(s) ago. Patient History: Menarche at age 14. First Full-Term at age 26. Hysterectomy at age 40. Postmenopausal. Patient has history of breast feeding. Risk Values: Luann 5 year model risk: 1.4%. NCI Lifetime model risk: 6.2%. Prior Study Comparison: 03/10/2021 Bilateral Screening Mammogram, [facility]. 03/17/2022 Bilateral MG 3D screening mammo w/cad, [facility]. 03/29/2023 Bilateral MG 3D screening mammo w/cad, [facility]. Tissue Density: The breasts are heterogeneously dense, which may obscure small masses. Findings: Analyzed By CAD. There is no suspicious group of microcalcifications or new suspicious mass in either breast. Loop recorder device overlying the left breast appears portion of the breast. Overall Assessment: Benign, BI-RAD 2 Management: Screening Mammogram of both breasts in 1 year. . Patient should continue monthly self-breast exams. A clinical breast exam by your physician is recommended on an annual basis. This exam should not preclude additional follow-up of suspicious palpable abnormalities. Note on Luann scores and lifetime risk: 1. A Luann score greater than 3% is considered moderate risk. If this is the case, consider specialist referral to assess eligibility for a risk reducing agent. 2. If overall lifetime risk for the development of breast cancer is 20% or higher, the patient may qualify for future screening with alternating mammogram and breast MRI. [facility], , 05/21/2024 11:19 AM. Electronically signed and approved by: Lemuel Turner M.D. Radiologis
== END | disposition home or self-care (01) ==
LOC: RADMAMWWP 09:31
PROVIDERS: ATTEND Family Medicine
DX: Z12.31 Encounter for screening mammogram for malignant neoplasm of breast (principal); Z78.0 Asymptomatic menopausal state; R92.333 Mammographic heterogeneous density, bilateral breasts
CPT/HCPCS: 77063; 77067